=== PATIENT | male | born 1995 | race African-American/Black ===

== ENCOUNTER 2024-11-05 08:26 | Emergency (ER) | payer MEDICAID, OTHER ==
[~2024-11-05] VITALS: Ht 188 cm; Wt 81.8 kg
[2024-11-05 08:35] VITALS: TEMP 98.1
[2024-11-05 11:30] VITALS: BP 134/84; PULSE 87; RESP 15; O2SAT 100
[2024-11-05] MEDS ORDERED: IBUP-1492 PO (11:32)
[2024-11-05] MEDS: TraMADol HCL 50 MG TABLET PO ONE (11:42)
== END 2024-11-05 12:05 | disposition home or self-care (01) ==
LOC: EMS 08:33
DX: M79.641 Pain in right hand (principal); J45.909 Unspecified asthma, uncomplicated; Z88.0 Allergy status to penicillin; Z87.442 Personal history of urinary calculi
CPT/HCPCS: 99283